=== PATIENT | female | born 1985 | race Caucasian/White ===

== ENCOUNTER 2018-03-24 17:25 | Inpatient (IN) | payer OTHER ==
[2018-03-24] MEDS ORDERED: PROMETHAZINE HCL 25 MG/1 ML VIAL ONE (17:56)
[2018-03-24] MEDS ORDERED: BUTORPHANOL TARTRATE 1 MG/ML VIAL ONE (17:56)
[2018-03-24] MEDS ORDERED: BUTORPHANOL TARTRATE 1 MG/ML VIAL IVPB ONE (18:00)
[2018-03-24] MEDS ORDERED: DEXTROSE 5%-LACTATED RINGERS 1,000 ML IV SCH (18:00)
[2018-03-24 18:09] VITALS: BMI 28.7
[2018-03-24] MEDS ORDERED: PROMETHAZINE HCL 25 MG/1 ML VIAL IVPB ONE (18:15)
[2018-03-24 18:36] LABS: BASO % 0.2 % (0-2.0); EOS % 0.6 % (0-4.5); HEMOGLOBIN 12.6 GM/dL (10.7-15.3); LYMPH % 24.3 % (8-40); MCH 28.1 pg (25.7-33.7); MCHC 33.1 g/dl (32.0-36.0); MEAN CELL VOLUME 84.8 fl (80-96); MONO % 5.1 % (3.8-10.2); NEUT % 69.8 % (42.8-82.8); PLATELET COUNT 205 K/MM3 (134-434); RBC 4.48 M/mm3 (3.60-5.2); RDW 13.7 % (11.6-15.6)
[2018-03-24] MEDS ORDERED: TUBERCULIN PPD 5 TU/0.1ML SYRINGE (IN PATIENT USE ONLY) ID ONE (19:00)
[2018-03-24 19:03] LABS: INR 0.87 (0.82-1.09); PROTHROMBIN TIME (PATIENT) 9.8 SEC (9.7-13.0)
[2018-03-24 19:05] LABS: ACTIVATED PTT 26.5 SECONDS (25.2-36.5)
[2018-03-24] MEDS ORDERED: OXYTOCIN 20 UNITS in 0.9% NS 20 UNIT/1,000 ML INFUS.BAG IV ONE (19:12)
[2018-03-24] MEDS ORDERED: LIDOCAINE HCL 1% PRESERVATIVE FREE - 30ML VIAL ONE (19:19)
[2018-03-24 19:24] LABS: ANION GAP 12 (8-16); BLOOD UREA NITROGEN 8 mg/dL (7-18); CALCIUM 8.6 mg/dL (8.5-10.1); CHLORIDE 107 mmol/L (98-107); CO2 20 mmol/L (21-32); CREATININE 0.7 mg/dL (0.55-1.02); GLUCOSE,RANDOM 147 mg/dL (74-106); POTASSIUM 4.1 mmol/L (3.5-5.1); SODIUM 139 mmol/L (136-145)
[2018-03-24] MEDS ORDERED: BISACODYL 10 MG SUPP.RECT RC PRN (22:36)
[2018-03-24] MEDS ORDERED: METHYLERGONOVINE MALEATE 0.2 MG/1 ML AMP IM PRN (22:36)
[2018-03-24] MEDS ORDERED: WITCH HAZEL 50% (TUCKS) 40 PAD/JAR PAD TP PRN (22:36)
[2018-03-24] MEDS ORDERED: IBUPROFEN 600 MG TABLET (FP) PO PRN (22:36)
[2018-03-24] MEDS ORDERED: BENZOCAINE 20% 57 GM BOTTLE TP PRN (22:36)
[2018-03-24] MEDS ORDERED: BENZOCAINE 28 GM HEMORRHOIDAL OINTMENT TP PRN (22:36)
--- NOTE | 2018-03-24 22:38 | PN ---
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
--- NOTE | 2018-03-24 22:43 | HP ---
Past Medical History - Primary Care Physician PCP:: James Muniz - Admission Chief Complaint: 32yo P2 with at EGA 38w6d admitted with spontaneous active labor History of Present Illness: Excessive weight gain in , o/w uncomplicated PNC History Source: Patient, Medical Record Limitations to Obtaining History: No Limitations - Past Medical History [employer]: No: Alzheimer's, CVA, Dementia, Migraine, Multiple Sclerosis, Peripheral Neuropathy, Parkinson's, Seizure, Syncope, TIA, Vertigo, Other Cardiovascular: No: AFIB, Aneurysm, Aortic Insufficiency, Aortic Stenosis, CAD, CHF, Deep Vein Thrombosis, HTN, Hyperlipdemia, OR, Mitral Insufficiency, Mitral Stenosis, Murmur, Pulmonary Hypertension, Other Pulmonary: No: Asthma, Bronchitis, Cancer, COPD, O2 Dependent, Pneumonia, Previously Intubated, Pulmonary Embolus, Pulmonary Fibrosis, Sleep Apnea, Other Gastrointestinal: No: Ascites, Cancer, Constipation, Crohn's Disease, Diverticulitis, Diverticulosis, Esophageal Varices, Gastritis, GERD, GI Bleed, Hemorrhoids, Hiatal Hernia, Inflamatory Bowel Disease, Irritable Bowel Disease, Pancreatitis, Peptic Ulcer Disease, Ulcerative Colitis, Other Hepatobiliary: No: Cirrhosis, Cholelithiasis, Cholecystitis, Choledocholithiasis , Hepatitis A, Hepatitis B, Hepatitis C, Other Renal/: No: Renal Failure, Renal Inusuff, BPH, Cancer, Hematuria, Hemodialysis , Neurogenic Bladder, Renal Calculi, UTI, Other Reproductive: No: Ectopic , Endometriosis, Fibroids, PID, Polycystic Ovary Syndrome, Postmenopausal, Other ...: 3 ...Para: 2 ...Term: 2 ...: 0 ...Spon : 0 ...Induced : 0 ...Multiple Gestation: 0 ...LMP: 06/20/17 ... Weeks Gestation by Dates: 39.4 ...EDC by Dates: 03/27/18 ...EDC by Sono: 04/01/18 Heme/Onc: No: Anemia, B12 Deficiency, Bleeding Disorder, Cancer, Current Chemotherapy, Current Radiation Therapy, Hemochromatosis, Hypercoaguable State, Myeloproliferative Synd, Sickle Cell Disease, Sickle Cell Trait, Thrombocytopenia, Other Infectious Disease: No: AIDS, C-Diff, Herpes Zoster, HIV, MRSA, STD's, Tuberculosis, VREF, Other Psych: No: Addictions, Anxiety, Bipolar, Depression, Panic, Psychosis, Schizophrenia, Other Rheumatology: No: Fibromyalgia, Gout, Lupus, Rheumatoid Arthritis, Sarcoidosis, Vasculitis, Other ENT: No: Allergic Rhinitis, Sinusitis, Other Endocrine: No: [place]'s Disease, [place]'s Disease, Diabetes Insipidus, Diabetes Mellitus, Hyperparathyroidism, Hyperthyroidism, Hypothyroidism, Osteopenia, SIADH, Other Dermatology: No: Basal Cell, Cellulitis, Eczema, Melanoma, Psoriasis, Squamous Cell, Other - Past Surgical History Past Surgical History: Yes: None Hx Myomectomy: No Hx Transabdominal Cerclage: No - Smoking History Smoking history: Never smoked Have you smoked in the past 12 months: No Aproximately how many cigarettes per day: 0 - Alcohol/Substance Use Hx Alcohol Use: No History of Substance Use: reports: None - Social History Usual Living Arrangement: Yes: With Spouse, With Child ADL: Independent History of Recent Travel: No Home Medications - Allergies Allergies/Adverse Reactions: Allergies Allergy/AdvReac Type Severity Reaction Status Date / Time No Known Drug Allergies Allergy Verified 03/24/18 18:00 SHRIMP Allergy Severe Swelling Uncoded 03/24/18 18:00 - Home Medications Home Medications: Ambulatory Orders Vitamins (Sjr) - 1 tab PO DAILY 01/31/18 Family Disease History - Family Disease History Family History: Denies Review of Systems - Review of Systems Constitutional: reports: Other (Spont Labor) Eyes: reports: No Symptoms HENT: reports: No Symptoms Neck: reports: No Symptoms Cardiovascular: reports: No Symptoms Respiratory: reports: No Symptoms Gastrointestinal: reports: No Symptoms Genitourinary: reports: No Symptoms Breasts: reports: No Symptoms Reported Musculoskeletal: reports: No Symptoms Integumentary: reports: No Symptoms Neurological: reports: No Symptoms Endocrine: reports: No Symptoms Hematology/Lymphatic: reports: No Symptoms Psychiatric: reports: No Symptoms Pain Intensity: 39 Physical Exam - Maternity Vital Signs: Vital Signs Temperature 98.0 F 03/24/18 20:30 Pulse Rate 79 03/24/18 20:30 Respiratory Rate 18 03/24/18 20:30 Blood Pressure 117/74 03/24/18 20:30 O2 Sat by Pulse Oximetry (%) 100 03/24/18 20:30 Constitutional: Yes: Well Nourished, No Distress, Calm Eyes: Yes: WNL, Conjunctiva Clear HENT: Yes: WNL, Atraumatic, Normocephalic Neck: Yes: WNL, Supple, Trachea Midline Cardiovascular: Yes: WNL, Regular Rate and Rhythm Lungs: Clear to auscultation, Normal air movement Breast(s): Yes: WNL - Abdominal Exam/OB Fundal Height: 39 Number of Fetuses: Single Presentation: Vertex Contractions: Yes Regularity: Regular Intensity: Moderate Monitor Mode: External Heart Rate (range): 140 Heart Rate Location: Midline Category: I Accelerations: Uniform Decelerations: None - Vaginal Exam/OB Vaginal Bleediing: No Speculum Exam: No Dilatation (cm): 7 Effacement (%): 90 Amniotic Membrane Status: Ruptured Amniotic Fluid: Yes: Clear Presentation: Vertex/Position Station: 0 - Physical Exam Musculoskeletal: Yes: WNL Extremities: Yes: WNL Edema: No Integumentary: Yes: WNL Deep Tendon Reflex Grade: Normal +2 ...Motor Strength: WNL Psychiatric: Yes: WNL, Alert, Oriented - Labs Lab Results: CBC, BMP 03/24/18 18:15 03/24/18 18:15 Hemorrhage Risk Assessment - Risk Factors Medium Risk Factors: Yes: None High Risk Factors: Yes: None Risk Score: 1 Risk Level: Medium Risk Assessment/Plan 32yo P2 with at EGA 38w6d admitted with spontaneous active labor. Pt proceeded to second stage of labor and had w/o complications.
[2018-03-24] MEDS ORDERED: OXYTOCIN 20 UNITS in 0.9% NS 20 UNIT/1,000 ML INFUS.BAG IV SCH (22:45)
[2018-03-24] MEDS ORDERED: OXYTOCIN 30 UNITS in 0.9% NS 30 UNIT/500 ML INFUS.BAG IVPB SCH (23:00)
[2018-03-24] MEDS: ACETAMINOPHEN 325 MG TABLET (FP) PO PRN (23:54)
[2018-03-25 07:49] LABS: BASO % 0.2 % (0-2.0); EOS % 0.3 % (0-4.5); HEMOGLOBIN 10.9 GM/dL (10.7-15.3); LYMPH % 14.6 % (8-40); MCH 28.1 pg (25.7-33.7); MCHC 33.1 g/dl (32.0-36.0); MEAN CELL VOLUME 84.8 fl (80-96); MEAN PLT VOLUME 9.8 fl (7.5-11.1); NEUT % 77.9 % (42.8-82.8); PLATELET COUNT 167 K/MM3 (134-434); RBC 3.89 M/mm3 (3.60-5.2); WHITE BLOOD COUNT 16.3 K/mm3 (4.0-10.0)
--- NOTE | 2018-03-25 08:23 | PN ---
Post Progress Note - Subjective Subjective: No complaints Post Day: 1 Type of Delivery: Vital Signs: Vital Signs Temperature 98.5 F 03/25/18 06:00 Pulse Rate 85 03/25/18 06:00 Respiratory Rate 20 03/25/18 06:00 Blood Pressure 111/59 03/25/18 06:00 O2 Sat by Pulse Oximetry (%) 100 03/24/18 20:30 Breast Exam: Yes: Soft Uterus: Yes: Fundus Firm, Fundus below umbilicus, Non-tender Abdomen/GI: Yes: Abdomen soft, Passing flatus, Tolerating PO Lochia: Yes: Rubra Lochia, amount: Small Extremities: Yes: Calves non-tender Perineum: Yes: Intact, Laceration Activity: Ambulating - Labs Labs: CBC WBC 16.3 K/mm3 (4.0-10.0) H 03/25/18 07:00 RBC 3.89 M/mm3 (3.60-5.2) 03/25/18 07:00 Hgb 10.9 GM/dL (10.7-15.3) 03/25/18 07:00 Hct 33.0 % (32.4-45.2) 03/25/18 07:00 MCV 84.8 fl (80-96) 03/25/18 07:00 MCH 28.1 pg (25.7-33.7) 03/25/18 07:00 MCHC 33.1 g/dl (32.0-36.0) 03/25/18 07:00 RDW 14.0 % (11.6-15.6) 03/25/18 07:00 Plt Count 167 K/MM3 (134-434) 03/25/18 07:00 MPV 9.8 fl (7.5-11.1) 03/25/18 07:00 Absolute Neuts (auto) 12.7 # 03/25/18 07:00 Neutrophils % 77.9 % (42.8-82.8) 03/25/18 07:00 Lymphocytes % 14.6 % (8-40) D 03/25/18 07:00 Monocytes % 7.0 % (3.8-10.2) 03/25/18 07:00 Eosinophils % 0.3 % (0-4.5) 07/06/18 07:00 Basophils % 0.2 % (0-2.0) 03/25/18 07:00 Nucleated RBC % 0 % (0-0) 03/25/18 07:00 Assessment/Plan 32yo P3 s/p , doing well stable, afebrile. care instructions reviewed. Continue routine care. Ambulation encouraged Discharge instruction reviewed.
[2018-03-25] MEDS: PRENATAL VITAMINS W/ FOLIC ACID TABLET (FP) PO SCH (10:20)
[2018-03-25] MEDS: ACETAMINOPHEN 325 MG TABLET (FP) PO PRN ×2 (12:20→21:17)
[2018-03-25] MEDS ORDERED: SENNOSIDES/DOCUSATE COMBO (SENNA PLUS) TABLET (UD) PO PRN (22:00)
[2018-03-26 08:48] VITALS: BP 109/64; PULSE 89; TEMP 97.9
[2018-03-26] MEDS: PRENATAL VITAMINS W/ FOLIC ACID TABLET (FP) PO SCH (09:06)
[2018-03-26] MEDS: ACETAMINOPHEN 325 MG TABLET (FP) PO PRN (09:06)
== END 2018-03-26 12:25 | disposition home or self-care (01) | DRG 560 ==
LOC: JLDR 17:25 → J3W 21:14
PROVIDERS: ADMIT Obstetrics & Gynecology; ATTEND Obstetrics & Gynecology
PROC: 10E0XZZ Delivery of Products of Conception, External Approach (ICD-10-PCS; principal; 2018-03-24)
PROC: 0KQM0ZZ Repair Perineum Muscle, Open Approach (ICD-10-PCS; 2018-03-24)
DX: O62.3 Precipitate labor (principal); O70.1 Second degree perineal laceration during delivery; Z3A.38 38 weeks gestation of pregnancy; Z37.0 Single live birth
CPT/HCPCS: 36415; 59409; 80048; 85025; 85610; 85730; 86593; 86850; 86900; 86901

== ENCOUNTER 2023-03-28 13:04 | Emergency (ER) | payer OTHER, SELFPAY ==
[2023-03-28 13:08] VITALS: BP 114/75; TEMP 97; BMI 22.6
[2023-03-28 14:26] VITALS: PULSE 55; RESP 20
== END 2023-03-28 14:28 | disposition home or self-care (01) ==
LOC: JER 13:04
DX: R20.2 Paresthesia of skin (principal); R07.0 Pain in throat; T78.02XA Anaphylactic reaction due to shellfish (crustaceans), initial encounter
CPT/HCPCS: 99282-25